=== PATIENT | male | born 1970 | race Caucasian/White ===

== ENCOUNTER 2022-05-18 03:29 | Inpatient (IN) | payer OTHER ==
[~2022-05-18] VITALS: Ht 177.8 cm; Wt 99.8 kg
[2022-05-18 04:00] VITALS: BP_SYST 157
[2022-05-18] MEDS ORDERED: KETOROLAC TROMETHAMINE 60 MG/2 ML VIAL IM ONE (04:15)
[2022-05-18] MEDS ORDERED: ONDANSETRON 4 MG ODT TAB PO ONE (04:15)
[2022-05-18 04:42] LABS: BASOPHILS % (AUTO) 0.3 % (0.0-2.0); EOSINOPHILS % (AUTO) 0.2 % (0.0-4.0); HEMATOCRIT 46.4 % (36-54); HEMOGLOBIN 15.5 g/dL (14.0-18.0); LYMPHOCYTES # (AUTO) 0.9 K/uL (1.0-5.5); LYMPHOCYTES % (AUTO) 9.1 % (20.5-51.5); MEAN CORPUSCULAR HEMOGLOBIN 28 pg (27-31); MEAN CORPUSCULAR HGB CONC 33 % (32-36); MEAN CORPUSCULAR VOLUME 83 fL (79.0-98.0); MONOCYTES # (AUTO) 0.7 K/uL (0.0-1.0); MONOCYTES % (AUTO) 6.8 % (1.7-9.3); NEUTROPHILS # (AUTO) 8.4 K/uL (1.8-7.7); NEUTROPHILS % (AUTO) 83.6 % (40.0-70.0); PLATELET COUNT (AUTO) 234 K/uL (130-430); RED BLOOD CELL COUNT(AUTO) 5.61 MIL/uL (4.2-6.2); RED CELL DISTRIBUTION WIDTH 14.1 % (9.0-15.0); WHITE BLOOD COUNT (AUTO) 10.1 K/uL (4.8-10.8)
[2022-05-18 04:53] LABS: CALCIUM 9.7 mg/dL (8.4-11.0); CREATININE 0.93 mg/dL (0.55-1.30)
[2022-05-18 05:05] LABS: ALBUMIN 3.9 g/dL (3.4-4.8); TOTAL BILIRUBIN 2.2 mg/dL (0.0-1.0)
[2022-05-18] MEDS ORDERED: NACL 0.9% 1,000 ML IV ONE (05:15)
[2022-05-18] MEDS: D5/0.45 NS 1,000 ML IV SCH ×2 (05:30→09:59)
[2022-05-18] MEDS ORDERED: PIOG15TA8 PO (05:47)
[2022-05-18] MEDS ORDERED: HYDR25TA4 PO (05:47)
[2022-05-18] MEDS ORDERED: METF-1069 PO (05:47)
[2022-05-18] MEDS ORDERED: LIP20 PO (05:47)
[2022-05-18] MEDS ORDERED: LOSA25TA3 PO (05:47)
[2022-05-18] MEDS ORDERED: VITD2000 PO (05:47)
[2022-05-18 06:23] LABS: BILIRUBIN,URINE NEGATIVE (NEGATIVE); BLOOD, URINE NEGATIVE (NEGATIVE); CLARITY/URINE CLEAR (CLEAR); COLOR,URINE YELLOW (YELLOW); GLUCOSE,URINE 3+ (NEGATIVE); KETONES,URINE 3+ (NEGATIVE); LEUKOCYTE ESTERASE ,URINE NEGATIVE (NEGATIVE); NITRITE, URINE NEGATIVE (NEGATIVE); PH,URINE 5.5 (5.0-8.0); PROTEIN URINE NEGATIVE (NEGATIVE); UROBILINOGEN,URINE 0.2 (0.2-1.0)
[2022-05-18 06:48] LABS: BACTERIA,URINE FEW /HPF (None Seen); MUCUS,URINE None Seen /LPF (None Seen); RBC,URINE 0-3 /HPF (0-3); WBC,URINE 0-3 /HPF (0-3)
[2022-05-18] MEDS ORDERED: NALOXONE HCL 0.4 MG/ML AMP (NARCAN) IVP PRN ×4 (07:00→11:30)
[2022-05-18] MEDS ORDERED: HYDROcodone/ACETAMIN 5-325 MG TAB (NORCO/ VICODIN) PO PRN (07:00)
[2022-05-18] MEDS ORDERED: INSULIN REGULAR, HUMAN 100 UNITS/ML, 3 ML VIAL SUBCUT SCH (07:00)
[2022-05-18] MEDS ORDERED: DEXTROSE 50% JECT 50 ML DISP.SYRIN IVP PRN (07:45)
[2022-05-18] MEDS ORDERED: GLUCOSE (DEXTROSE) ORAL GEL -Adults PO PRN (07:45)
[2022-05-18] MEDS ORDERED: INSULIN REGULAR, HUMAN 100 UNITS/ML, 3 ML VIAL (humuLIN R) SUBCUT PRN (07:45)
[2022-05-18] MEDS ORDERED: D5W 1,000 ML IV PRN (07:45)
[2022-05-18] MEDS: metFORMIN HCL 500 MG TABLET PO SCH ×2 (10:00→18:38)
[2022-05-18 12:12] VITALS: BP_SYST 135
[2022-05-18] MEDS ORDERED: ONDANSETRON HCL 4 MG/2 ML VIAL IVP PRN (12:30)
[2022-05-18] MEDS ORDERED: PIOGLITAZONE HCL 15 MG TABLET PO ONE (13:00)
[2022-05-18] MEDS ORDERED: HYDROCHLOROTHIAZIDE 25 MG TABLET (HCTZ) PO ONE (13:00)
[2022-05-18] MEDS ORDERED: LOSARTAN POTASSIUM 25 MG TABLET PO ONE (13:00)
[2022-05-18] MEDS: INSULIN REGULAR, HUMAN 100 UNITS/ML, 3 ML VIAL (humuLIN R) SUBCUT PRN ×3 (13:13→20:49)
[2022-05-18] MEDS: MORPHINE 2 MG/ML INJ. SYRINGE IVP PRN ×2 (15:47→20:42)
[2022-05-18 16:18] VITALS: BP_SYST 132
[2022-05-18 19:00] VITALS: BP_SYST 131; BP_SYST 132
[2022-05-18 20:00] VITALS: BP_SYST 131; BP_SYST 132
[2022-05-18] MEDS: ATORVASTATIN 20 MG TABLET PO SCH (20:40)
[2022-05-19] VITALS: BP_SYST 130
[2022-05-19] MEDS: MORPHINE 2 MG/ML INJ. SYRINGE IVP PRN ×6 (00:37→22:32)
[2022-05-19] MEDS: LORazepam 2 MG/ML VIAL IVP PRN ×3 (01:54→22:47)
[2022-05-19] MEDS: D5/0.45 NS 1,000 ML IV SCH ×3 (01:57→22:18)
[2022-05-19 04:00] VITALS: BP_SYST 134
[2022-05-19] MEDS: HYDROcodone/ACETAMIN 10-325 MG TAB PO PRN ×2 (05:55→12:38)
[2022-05-19] MEDS: INSULIN REGULAR, HUMAN 100 UNITS/ML, 3 ML VIAL (humuLIN R) SUBCUT PRN ×4 (06:00→22:40)
[2022-05-19] MEDS: metFORMIN HCL 500 MG TABLET PO SCH ×2 (08:00→18:00)
[2022-05-19 08:19] LABS: BASOPHILS % (AUTO) 0.1 % (0.0-2.0); HEMATOCRIT 40.3 % (36-54); HEMOGLOBIN 14.1 g/dL (14.0-18.0); LYMPHOCYTES % (AUTO) 6.5 % (20.5-51.5); MEAN CORPUSCULAR HEMOGLOBIN 28 pg (27-31); MEAN CORPUSCULAR HGB CONC 35 % (32-36); MEAN CORPUSCULAR VOLUME 81 fL (79.0-98.0); MONOCYTES # (AUTO) 1.7 K/uL (0.0-1.0); MONOCYTES % (AUTO) 10.7 % (1.7-9.3); NEUTROPHILS # (AUTO) 13.2 K/uL (1.8-7.7); NEUTROPHILS % (AUTO) 82.7 % (40.0-70.0); PLATELET COUNT (AUTO) 202 K/uL (130-430); RED BLOOD CELL COUNT(AUTO) 4.96 MIL/uL (4.2-6.2); RED CELL DISTRIBUTION WIDTH 14.1 % (9.0-15.0)
[2022-05-19 08:54] LABS: ALBUMIN 2.9 g/dL (3.4-4.8); CALCIUM 8.5 mg/dL (8.4-11.0); CREATININE 0.66 mg/dL (0.55-1.30); TOTAL BILIRUBIN 2.2 mg/dL (0.0-1.0)
[2022-05-19] MEDS: PIOGLITAZONE HCL 15 MG TABLET PO SCH (09:00)
[2022-05-19] MEDS: HYDROCHLOROTHIAZIDE 25 MG TABLET (HCTZ) PO SCH (09:07)
[2022-05-19] MEDS: LOSARTAN POTASSIUM 25 MG TABLET PO SCH (09:08)
[2022-05-19] MEDS: CHOLECALCIFEROL (VITAMIN D3) 2,000 UNIT TABLET PO SCH (09:08)
[2022-05-19] MEDS ORDERED: BISACODYL 5 MG TABLET.DR (DULCOLAX) PO ONE (12:45)
[2022-05-19] MEDS ORDERED: POTASSIUM CHLORIDE 20 MEQ TAB.PRT.SR PO ONE (18:45)
[2022-05-19 19:00] VITALS: BP_SYST 132
[2022-05-19 20:00] VITALS: BP_SYST 132
[2022-05-19] MEDS: ATORVASTATIN 20 MG TABLET PO SCH (22:18)
[2022-05-20] VITALS: BP_SYST 130
[2022-05-20] MEDS: INSULIN REGULAR, HUMAN 100 UNITS/ML, 3 ML VIAL (humuLIN R) SUBCUT PRN ×4 (05:56→21:26)
[2022-05-20 07:56] LABS: BASOPHILS % (AUTO) 0.2 % (0.0-2.0); EOSINOPHILS # (AUTO) 0.1 K/uL (0.0-0.4); EOSINOPHILS % (AUTO) 0.4 % (0.0-4.0); HEMATOCRIT 42.1 % (36-54); HEMOGLOBIN 14.3 g/dL (14.0-18.0); LYMPHOCYTES % (AUTO) 6.3 % (20.5-51.5); MEAN CORPUSCULAR HEMOGLOBIN 28 pg (27-31); MEAN CORPUSCULAR HGB CONC 34 % (32-36); MEAN CORPUSCULAR VOLUME 82 fL (79.0-98.0); MONOCYTES # (AUTO) 1.7 K/uL (0.0-1.0); MONOCYTES % (AUTO) 10.7 % (1.7-9.3); NEUTROPHILS # (AUTO) 12.8 K/uL (1.8-7.7); NEUTROPHILS % (AUTO) 82.4 % (40.0-70.0); PLATELET COUNT (AUTO) 188 K/uL (130-430); RED BLOOD CELL COUNT(AUTO) 5.15 MIL/uL (4.2-6.2); RED CELL DISTRIBUTION WIDTH 13.8 % (9.0-15.0); WHITE BLOOD COUNT (AUTO) 15.5 K/uL (4.8-10.8)
[2022-05-20 08:00] VITALS: BP_SYST 133
[2022-05-20] MEDS: metFORMIN HCL 500 MG TABLET PO SCH ×2 (08:00→18:00)
[2022-05-20 08:11] LABS: ALBUMIN 2.6 g/dL (3.4-4.8); CALCIUM 8.8 mg/dL (8.4-11.0); CREATININE 0.79 mg/dL (0.55-1.30); TOTAL BILIRUBIN 2.9 mg/dL (0.0-1.0)
[2022-05-20] MEDS: LOSARTAN POTASSIUM 25 MG TABLET PO SCH (08:45)
[2022-05-20] MEDS: HYDROCHLOROTHIAZIDE 25 MG TABLET (HCTZ) PO SCH (08:46)
[2022-05-20] MEDS: CHOLECALCIFEROL (VITAMIN D3) 2,000 UNIT TABLET PO SCH (08:47)
[2022-05-20] MEDS: D5/0.45 NS 1,000 ML IV SCH ×3 (08:47→23:55)
[2022-05-20] MEDS: PIOGLITAZONE HCL 15 MG TABLET PO SCH (08:47)
[2022-05-20] MEDS: MORPHINE 2 MG/ML INJ. SYRINGE IVP PRN ×2 (10:34→16:43)
[2022-05-20 11:13] VITALS: BP_SYST 134
[2022-05-20 12:07] LABS: ANTI NUCLEAR AB WITH REFLEX Negative (Negative)
[2022-05-20 17:07] VITALS: BP_SYST 129
[2022-05-20] MEDS: LORazepam 2 MG/ML VIAL IVP PRN (18:03)
[2022-05-20 20:00] VITALS: BP_SYST 139
[2022-05-20] MEDS: ATORVASTATIN 20 MG TABLET PO SCH (20:33)
[2022-05-20] MEDS: HYDROcodone/ACETAMIN 10-325 MG TAB PO PRN (20:34)
[2022-05-21 00:22] VITALS: BP_SYST 131
[2022-05-21] MEDS: HYDROcodone/ACETAMIN 10-325 MG TAB PO PRN ×5 (04:43→22:53)
[2022-05-21] MEDS: INSULIN REGULAR, HUMAN 100 UNITS/ML, 3 ML VIAL (humuLIN R) SUBCUT PRN ×4 (06:21→21:23)
[2022-05-21 07:25] LABS: HEMATOCRIT 39.5 % (36-54); HEMOGLOBIN 13.3 g/dL (14.0-18.0); MEAN CORPUSCULAR HEMOGLOBIN 28 pg (27-31); MEAN CORPUSCULAR HGB CONC 34 % (32-36); MEAN CORPUSCULAR VOLUME 81 fL (79.0-98.0); PLATELET COUNT (AUTO) 209 K/uL (130-430); RED BLOOD CELL COUNT(AUTO) 4.85 MIL/uL (4.2-6.2); RED CELL DISTRIBUTION WIDTH 13.6 % (9.0-15.0); WHITE BLOOD COUNT (AUTO) 13.9 K/uL (4.8-10.8)
[2022-05-21 08:00] VITALS: BP_SYST 145
[2022-05-21 08:09] LABS: ALBUMIN 2.3 g/dL (3.4-4.8); CALCIUM 8.7 mg/dL (8.4-11.0); CREATININE 0.77 mg/dL (0.55-1.30); TOTAL BILIRUBIN 2.1 mg/dL (0.0-1.0)
[2022-05-21] MEDS: metFORMIN HCL 500 MG TABLET PO SCH ×2 (08:51→17:19)
[2022-05-21] MEDS: HYDROCHLOROTHIAZIDE 25 MG TABLET (HCTZ) PO SCH (08:55)
[2022-05-21] MEDS: PIOGLITAZONE HCL 15 MG TABLET PO SCH (08:58)
[2022-05-21] MEDS: CHOLECALCIFEROL (VITAMIN D3) 2,000 UNIT TABLET PO SCH (08:58)
[2022-05-21] MEDS: LOSARTAN POTASSIUM 25 MG TABLET PO SCH (08:58)
[2022-05-21] MEDS: D5/0.45 NS 1,000 ML IV SCH ×2 (09:02→22:55)
[2022-05-21] MEDS ORDERED: DIATR MEGLU/DIATRIZ SOD 30 ML SOLUTION PO ONE (10:55)
[2022-05-21 11:35] VITALS: BP_SYST 142
[2022-05-21] MEDS ORDERED: POTASSIUM CHLORIDE 20 MEQ TAB.PRT.SR PO ONE (12:30)
[2022-05-21 13:18] LABS: BAND % (MANUAL) 5 % (0-6); EOSINOPHILS % (MANUAL) 2 % (0-7); LYMPHOCYTES % (MANUAL) 4 % (20-46); MONOCYTES % (MANUAL) 6 % (0-11)
[2022-05-21 13:19] LABS: BASOPHILS % (MANUAL) 0 % (0-2)
[2022-05-21 15:40] VITALS: BP_SYST 136
[2022-05-21 20:00] VITALS: BP_SYST 123
[2022-05-21] MEDS: ATORVASTATIN 20 MG TABLET PO SCH (21:15)
[2022-05-22 00:01] VITALS: BP_SYST 132
[2022-05-22] MEDS: HYDROcodone/ACETAMIN 10-325 MG TAB PO PRN ×2 (05:16→13:37)
[2022-05-22] MEDS: INSULIN REGULAR, HUMAN 100 UNITS/ML, 3 ML VIAL (humuLIN R) SUBCUT PRN ×2 (06:12→12:43)
[2022-05-22 07:57] LABS: BASOPHILS # (AUTO) 0.1 K/uL (0.0-0.2); BASOPHILS % (AUTO) 0.6 % (0.0-2.0); EOSINOPHILS # (AUTO) 0.3 K/uL (0.0-0.4); EOSINOPHILS % (AUTO) 2.8 % (0.0-4.0); HEMATOCRIT 38.4 % (36-54); HEMOGLOBIN 12.9 g/dL (14.0-18.0); LYMPHOCYTES % (AUTO) 8.5 % (20.5-51.5); MEAN CORPUSCULAR HEMOGLOBIN 28 pg (27-31); MEAN CORPUSCULAR HGB CONC 34 % (32-36); MEAN CORPUSCULAR VOLUME 82 fL (79.0-98.0); MONOCYTES # (AUTO) 1.3 K/uL (0.0-1.0); MONOCYTES % (AUTO) 11.4 % (1.7-9.3); NEUTROPHILS # (AUTO) 8.7 K/uL (1.8-7.7); NEUTROPHILS % (AUTO) 76.7 % (40.0-70.0); PLATELET COUNT (AUTO) 208 K/uL (130-430); RED BLOOD CELL COUNT(AUTO) 4.71 MIL/uL (4.2-6.2); RED CELL DISTRIBUTION WIDTH 13.8 % (9.0-15.0); WHITE BLOOD COUNT (AUTO) 11.3 K/uL (4.8-10.8)
[2022-05-22] MEDS: metFORMIN HCL 500 MG TABLET PO SCH (08:00)
[2022-05-22 09:15] VITALS: BP_SYST 128
[2022-05-22] MEDS: D5/0.45 NS 1,000 ML IV SCH (09:30)
[2022-05-22] MEDS: CHOLECALCIFEROL (VITAMIN D3) 2,000 UNIT TABLET PO SCH (09:41)
[2022-05-22] MEDS: HYDROCHLOROTHIAZIDE 25 MG TABLET (HCTZ) PO SCH (09:41)
[2022-05-22] MEDS: PIOGLITAZONE HCL 15 MG TABLET PO SCH (09:42)
[2022-05-22] MEDS: LOSARTAN POTASSIUM 25 MG TABLET PO SCH (09:42)
[2022-05-22] MEDS: MORPHINE 2 MG/ML INJ. SYRINGE IVP PRN (09:46)
[2022-05-22 09:52] LABS: ALBUMIN 2.1 g/dL (3.4-4.8); CALCIUM 8.8 mg/dL (8.4-11.0); CREATININE 0.87 mg/dL (0.55-1.30); TOTAL BILIRUBIN 1.9 mg/dL (0.0-1.0)
[2022-05-22] MEDS ORDERED: HYDR-3927 PO (11:34)
[2022-05-22] MEDS ORDERED: METO-290 PO (11:34)
[2022-05-22 13:15] VITALS: BP_SYST 131
[2022-05-22 13:23] VITALS: BP_SYST 131
== END 2022-05-22 17:00 | disposition home or self-care (01) | DRG 439 ==
LOC: SED 03:29 → SMU 05:28
PROVIDERS: ADMIT Preventive Medicine Preventive Medicine/Occupational Environmental Medicine; ATTEND Preventive Medicine Preventive Medicine/Occupational Environmental Medicine
DX: K85.90 Acute pancreatitis without necrosis or infection, unspecified (principal); E87.1 Hypo-osmolality and hyponatremia; R65.10 Systemic inflammatory response syndrome (SIRS) of non-infectious origin without acute organ dysfunction; E83.42 Hypomagnesemia; E87.6 Hypokalemia; E53.9 Vitamin B deficiency, unspecified; E11.65 Type 2 diabetes mellitus with hyperglycemia; E55.9 Vitamin D deficiency, unspecified; E78.5 Hyperlipidemia, unspecified; E88.09 Other disorders of plasma-protein metabolism, not elsewhere classified; I10 Essential (primary) hypertension; Z20.822 Contact with and (suspected) exposure to COVID-19; R74.01 Elevation of levels of liver transaminase levels; Z79.899 Other long term (current) drug therapy
CPT/HCPCS: 36415; 74181; 76376; 76700-TC; 80053; 81000; 82150; 82787; 82962; 83690; 84478; 85007; 85025; 85027; 86038; 86301; 96360; 96372; 99285; J1815; J1885; J2060; J2270; Q0162; Q9964; Q9967